=== PATIENT | female | born 1975 | race American Indian/Alaskan Native ===

== ENCOUNTER 2019-02-20 17:09 | Emergency (ER) | payer SELFPAY ==
--- NOTE | 2019-02-20 18:43 | Event Note ---
ED Screening Note Date of service: 02/20/19 Time: 18:39 ED Screening Note: Pt complains of lower abdominal pain x 3 days +diarrhea, denies hematochezia/melena +urinary frequency and mild discharge, denies dysuria or vaginal bleeding LMP 01/29/19 mild suprpubic tenderness noted on exam This initial assessment/diagnostic orders/clinical plan/treatment(s) is/are subject to change based on patients health status, clinical progression and re- assessment by fellow clinical providers in the ED. Further treatment and workup at subsequent clinical providers discretion. Patient/guardian urged not to elope from the ED as their condition may be serious if not clinically assessed and managed. Initial orders include: labs US
[2019-02-20 19:08] LABS: Bilirubin,Urine NEG (Negative); Blood,Urine SM (Negative); Color,Urine Yellow (Yellow); Mucus,Urine 3+ /HPF; Protein,Urine <15 mg/dL mg/dL (Negative)
[2019-02-20 20:13] LABS: Hematocrit 31.6 % (30.3-42.9); Hemoglobin 10.1 gm/dl (10.1-14.3); Mean Corpuscular HGB Conc 32 % (30-34); Mean Corpuscular Volume 88 fl (79-97); Platelet Count 360 K/mm3 (140-440); Red Blood Count 3.58 M/mm3 (3.65-5.03); Red Cell Distribution Width 15.5 % (13.2-15.2)
[2019-02-20 20:26] LABS: BUN/Creatinine Ratio 13; Blood Urea Nitrogen 10 mg/dL (7-17); Calcium 8.9 mg/dL (8.4-10.2); Hemolysis Index 5
[2019-02-20 22:06] VITALS: BP 150/82
--- NOTE | 2019-02-20 22:54 | Emergency Department Report ---
ED N/V/D HPI - General Chief complaint: Abdominal Pain Stated complaint: ABD PAIN/DIARRHEA/DIZZY Time Seen by Provider: 02/20/19 18:39 Source: patient Mode of arrival: Ambulatory Limitations: No Limitations - History of Present Illness Initial comments: 43 y.o female pt c/o abd pain and diarrhea since Tuesday. pt states i also feel light headed and dizzy. She also c/o nausea and vaginal discharge. no alleviating factors, eating is an exacerbating factor. MD complaint: nausea, vomiting - Related Data Previous Rx's Medication Instructions Recorded Last Taken Type HYDROcodone/APAP 5-325 [Nephi 1 each PO Q6HR PRN #14 tablet 05/28/15 Unknown Rx 5/325] Ondansetron [Zofran Odt] 4 mg PO Q8H PRN #14 tab.rapdis 05/28/15 Unknown Rx Amoxicillin/Potassium Clav 1 each PO BID #14 tablet 03/19/18 Unknown Rx [Augmentin 875-125 Tablet] Tamsulosin [Flomax] 0.4 mg PO QDAY #7 cap 03/19/18 Unknown Rx traMADoL [Ultram] 50 mg PO Q6HR PRN #14 tablet 03/19/18 Unknown Rx Loperamide HCl [Imodium A-D] 2 mg PO BID PRN #14 capsule 02/20/19 Unknown Rx Ondansetron [Zofran ODT TAB] 4 mg PO Q8HR PRN #14 tab.rapdis 02/20/19 Unknown Rx metroNIDAZOLE [Flagyl TAB] 500 mg PO Q12HR 7 Days #14 tablet 02/20/19 Unknown Rx Allergies Allergy/AdvReac Type Severity Reaction Status Date / Time No Known Allergies Allergy Verified 05/28/15 08:21 ED Review of Systems ROS: Stated complaint: ABD PAIN/DIARRHEA/DIZZY Other details as noted in HPI Comment: All other systems reviewed and negative ENT: denies: ear pain Respiratory: denies: cough Cardiovascular: denies: chest pain Gastrointestinal: abdominal pain, nausea, vomiting Genitourinary: as per HPI ED Past Medical Hx - Past Medical History Previous Medical History?: No - Surgical History Past Surgical History?: Yes Additional Surgical History: c sect, breast reduction, tubal ligation - Social History Smoking Status: Current Every Day Smoker - Medications Home Medications: Home Medications Medication Instructions Recorded Confirmed Last Taken Type HYDROcodone/APAP 5-325 [Nephi 1 each PO Q6HR PRN #14 tablet 05/28/15 Unknown Rx 5/325] Ondansetron [Zofran Odt] 4 mg PO Q8H PRN #14 tab.rapdis 05/28/15 Unknown Rx Amoxicillin/Potassium Clav 1 each PO BID #14 tablet 03/19/18 Unknown Rx [Augmentin 875-125 Tablet] Tamsulosin [Flomax] 0.4 mg PO QDAY #7 cap 03/19/18 Unknown Rx traMADoL [Ultram] 50 mg PO Q6HR PRN #14 tablet 03/19/18 Unknown Rx Loperamide HCl [Imodium A-D] 2 mg PO BID PRN #14 capsule 02/20/19 Unknown Rx Ondansetron [Zofran ODT TAB] 4 mg PO Q8HR PRN #14 tab.rapdis 02/20/19 Unknown Rx metroNIDAZOLE [Flagyl TAB] 500 mg PO Q12HR 7 Days #14 tablet 02/20/19 Unknown Rx ED Physical Exam - General Limitations: No Limitations General appearance: alert, in no apparent distress - Head Head exam: Present: atraumatic, normocephalic - Eye Eye exam: Present: normal appearance - ENT ENT exam: Present: mucous membranes moist - Neck Neck exam: Present: normal inspection - Respiratory Respiratory exam: Present: normal lung sounds bilaterally. Absent: respiratory distress - Cardiovascular Cardiovascular Exam: Present: regular rate, normal rhythm. Absent: systolic murmur, diastolic murmur, rubs, gallop - GI/Abdominal GI/Abdominal exam: Present: soft, normal bowel sounds - Speculum exam: Present: cervical discharge ED Course Vital Signs 02/20/19 02/20/19 18:39 22:05 Temperature 98.4 F 98.5 F Pulse Rate 86 63 Respiratory 17 18 Rate Blood Pressure 139/82 Blood Pressure 150/82 [Right] O2 Sat by Pulse 100 100 Oximetry ED Medical Decision Making - Lab Data Result diagrams: 02/20/19 19:47 02/20/19 19:47 Critical care attestation.: If time is entered above; I have spent that time in minutes in the direct care of this critically ill patient, excluding procedure time. ED Disposition Clinical Impression: Trichomonal cervicitis Diarrhea Qualifiers: Diarrhea type: unspecified type Qualified Code(s): R19.7 - Diarrhea, unspecified Disposition: DC-01 TO HOME OR SELFCARE Is pt being admited?: No Does the pt Need Aspirin: No Condition: Stable Instructions: Abdominal Pain (ED) Prescriptions: metroNIDAZOLE [Flagyl TAB] 500 mg PO Q12HR 7 Days #14 tablet Loperamide HCl [Imodium A-D] 2 mg PO BID PRN #14 capsule PRN Reason: Diarrhea Ondansetron [Zofran ODT TAB] 4 mg PO Q8HR PRN #14 tab.rapdis PRN Reason: Nausea And Vomiting Referrals: PRIMARY CARE,MD [Primary Care Provider] - 3-5 Days Forms: STI Treatment and Prevention
== END 2019-02-20 23:13 | disposition home or self-care (01) ==
LOC: ED 17:09
DX: A59.09 Other urogenital trichomoniasis (principal); R19.7 Diarrhea, unspecified; F17.200 Nicotine dependence, unspecified, uncomplicated; Z98.51 Tubal ligation status
CPT/HCPCS: 36415; 80048; 81001; 83690; 84703; 85027; 87086; 87210; 87591

== ENCOUNTER 2021-09-28 08:26 | Emergency (ER) | payer SELFPAY ==
[2021-09-28 08:44] VITALS: BP 144/92
--- NOTE | 2021-09-28 09:42 | XRay Report ---
CHEST 2 VIEWS INDICATION / CLINICAL INFORMATION: SOB. COMPARISON: None available. FINDINGS: SUPPORT DEVICES: None. HEART / MEDIASTINUM: No significant abnormality. LUNGS / PLEURA: No significant pulmonary or pleural abnormality. No pneumothorax. ADDITIONAL FINDINGS: No significant additional findings. IMPRESSION: 1. No acute findings. Signer Name: Derick Partida MD Signed: 09/28/2021 9:38 AM Workstation Name: [id number]
--- NOTE | 2021-09-28 09:49 | Emergency Department Report ---
Minor Respiratory - HPI Chief Complaint: Upper Respiratory Infection Stated Complaint: COLD SX 2 WEEKS Time Seen by Provider: 09/28/21 09:43 Pain Location: Facial, Throat, Nose, Chest Severity: mild Minor Respiratory: Yes Rhinorrhea, Yes Sore Throat, Yes Able to Tolerate Fluids, Yes Cough, No Ear Pain, No Sick Contacts, No Hemoptysis, No Chest Pain, No Shortness of Breath, No Fever Other History: She is a 45-year-old female that comes to the ER with a 2-week history of cough, runny nose, sinus congestion and sore throat. She took a PCR yesterday that was negative for COVID. She has an otherwise healthy female. Low-grade fevers. Endorses night sweats. Patient has no tachycardia or hypotension. She is [id number] on exam ED Review of Systems ROS: Stated complaint: COLD SX 2 WEEKS Other details as noted in HPI Comment: All other systems reviewed and negative ED Past Medical Hx - Past Medical History Previous Medical History?: No - Surgical History Past Surgical History?: Yes Additional Surgical History: c sect, breast reduction, tubal ligation - Family History Family history: no significant - Social History Smoking Status: Never Smoker - Medications Home Medications: Home Medications Medication Instructions Recorded Confirmed Last Taken Type Amoxicillin [Trimox CAP] 500 mg PO BID #20 capsule 09/28/21 Unknown Rx Cetirizine HCl [ZyrTEC] 10 mg PO DAILY #30 capsule 09/28/21 Unknown Rx Fluticasone [Flonase] 1 spray NS QDAY #1 bottle 09/28/21 Unknown Rx predniSONE [Deltasone] 20 mg PO DAILY #5 tablet 09/28/21 Unknown Rx Minor Respiratory Exam - Exam General: Vital signs noted. No distress. Alert and acting appropriately. HEENT: Yes Pharyngeal Erythema, Yes Pharyngeal Exudates, Yes Moist Mucous Membranes, Yes Frontal Tenderness, Yes Maxillary Tenderness, No Rhinorrhea, No Conjuctival Injection Ear: Neither TM Bulge, Neither TM Erythema, Neither EAC Pain, Neither EAC Discharge Neck: Yes Supple, No Adenopathy Lungs: Yes Good Air Exchange, No Wheezes, No Ronchi, No Stridor, No Cough, No Labored Respirations, No Retractions, No Use of Accessory Muscles, No Other Abnormal Lung Sounds Heart: Yes Regular, No Murmur Abdomen: Yes Normal Bowel Sounds, No Tenderness, No Peritoneal Signs Skin: No Rash, No Edema Neurologic: Alert and oriented, no deficits. Musculoskeletal: Unremarkable. ED Course Vital Signs 09/28/21 08:39 Temperature 99.8 F H Pulse Rate 70 Respiratory 18 Rate Blood Pressure 144/92 O2 Sat by Pulse 100 Oximetry ED Medical Decision Making - Radiology Data Radiology results: report reviewed, image reviewed NAP - Medical Decision Making Vital Signs 09/28/21 08:39 Temperature 99.8 F H Pulse Rate 70 Respiratory 18 Rate Blood Pressure 144/92 O2 Sat by Pulse 100 Oximetry X-ray with no acute process On discharge exam patient is in no acute distress. She is taking p.o. Patient being discharged home with discharge plan of care including diet, activity medications and follow-up. She verbalizes understanding of plan of care. - Differential Diagnosis URI RO PNA Critical care attestation.: If time is entered above; I have spent that time in minutes in the direct care of this critically ill patient, excluding procedure time. ED Disposition Clinical Impression: URI (upper respiratory infection) Qualifiers: URI type: unspecified viral URI Qualified Code(s): J06.9 - Acute upper respiratory infection, unspecified Sinusitis Qualifiers: Sinusitis location: frontal Chronicity: acute Recurrence: non-recurrent Quali fied Code(s): J01.10 - Acute frontal sinusitis, unspecified Pharyngitis Qualifiers: Pharyngitis/tonsillitis etiology: other specified organisms Qualified Code(s): J02.8 - Acute pharyngitis due to other specified organisms Disposition: HOME / SELF CARE / HOMELESS Is pt being admited?: No Does the pt Need Aspirin: No Condition: Stable Instructions: Pharyngitis, [id number] Additional Instructions: [id number] Motrin or Tylenol for fever. Medications as ordered today. Stay well-hydrated with water. Follow-up with PCP to make sure you are improving. Referral given below Prescriptions: predniSONE [Deltasone] 20 mg PO DAILY #5 tablet Fluticasone [Flonase] 1 spray NS QDAY #1 bottle Amoxicillin [Trimox CAP] 500 mg PO BID #20 capsule Cetirizine HCl [ZyrTEC] 10 mg PO DAILY #30 capsule Referrals: HALIE MEYER MD [Staff Physician] - 3-5 Days Forms: Work/School Release Form(ED) Time of Disposition: :47
== END 2021-09-28 09:54 | disposition home or self-care (01) ==
LOC: ED 08:26
DX: J06.9 Acute upper respiratory infection, unspecified (principal); J32.9 Chronic sinusitis, unspecified; Z98.890 Other specified postprocedural states
CPT/HCPCS: 71046; 99283